=== PATIENT | female | born 1965 | race Caucasian/White ===

== ENCOUNTER 2019-12-30 20:03 | Emergency (ER) | payer OTHER ==
[2019-12-30] MEDS ORDERED: ONDANSETRON 4 MG TAB.RAPDIS PO ONE (21:07)
[2019-12-30] MEDS ORDERED: NORMAL SALINE 1000 ML 1,000 ML IV ONE (21:07)
[2019-12-30] MEDS ORDERED: DEXAMETHASONE SOD PHOS INJ 10 MG/1 ML VIAL IM ONE (21:08)
--- NOTE | 2019-12-30 21:09 | ER Document Report ---
ED Medical Screen (RME) - General Chief Complaint: Cough Stated Complaint: COUGH,FEVER,BODY ACHES Time Seen by Provider: 12/30/19 21:07 - HPI Notes: 12/30/19 21:08 Patient is a 54-year-old female no significant past medical history presents complaining of hoarseness of voice, cough, nausea/vomiting over the past 5 days. I have treated and performed a rapid initial assessment of this patient. A comprehensive ED assessment and evaluation of the patient, analysis of test results and completion of medical decision making process will be conducted by additional ED providers. PHYSICAL EXAMINATION: GENERAL: Well-appearing, well-nourished and in no acute distress. A&Ox4. Answers questions appropriately. Lungs: Grossly CTAB. No retractions. - Related Data Allergies/Adverse Reactions: codeine Allergy (Verified 12/30/19 21:06) Hives Physical Exam - Vital signs Vitals: Temp Pulse Resp BP Pulse Ox 98.0 F 89 16 134/68 H 98 12/30/19 20:15 12/30/19 20:15 12/30/19 20:15 12/30/19 20:15 12/30/19 20:15 Course - Vital Signs Vital signs: Temp Pulse Resp BP Pulse Ox 98.0 F 89 16 134/68 H 98 12/30/19 20:15 12/30/19 20:15 12/30/19 20:15 12/30/19 20:15 12/30/19 20:15
--- NOTE | 2019-12-30 21:40 | RADIOLOGY REPORT (SQ) ---
EXAM DESCRIPTION: XR CHEST 2 VIEWS COMPLETED DATE/TME: 12/30/2019 21:07 CLINICAL HISTORY: 54 years, Female, cough COMPARISON: None. NUMBER OF VIEWS: 2 TECHNIQUE: Frontal and lateral radiograph are obtained LIMITATIONS: None. FINDINGS: Cardiac and mediastinal contours are normal in appearance. Lungs are clear. No pleural effusion or pneumothorax. IMPRESSION: No acute disease. copyright 2010 [employer]- All Rights Reserved
[2019-12-30 21:57] LABS: APPEARANCE,URINE CLEAR; BILIRUBIN,URINE NEGATIVE (NEGATIVE); COLOR,URINE YELLOW; GLUCOSE, URINE NEGATIVE (NEGATIVE); KETONES,URINE NEGATIVE (NEGATIVE); PROTEIN,URINE NEGATIVE (NEGATIVE); URINE SPECIFIC GRAVITY 1.017; UROBILINOGEN,URINE NEGATIVE mg/dL (<2.0)
[2019-12-30] MEDS ORDERED: DEXAMETHASONE SOD PHOS INJ 10 MG/1 ML VIAL IV ONE (22:26)
[2019-12-30] MEDS ORDERED: LIDOCAINE 1% INJ-PF (10 MG/ML) 30 ML SDV NEB ONE (22:26)
[2019-12-30] MEDS ORDERED: ONDANSETRON HCL INJ/PF 4 MG/2 ML SDV IV ONE (22:26)
--- NOTE | 2019-12-30 22:28 | ER Document Report ---
ED General - General Chief Complaint: Cold Symptoms Stated Complaint: COUGH,FEVER,BODY ACHES Time Seen by Provider: 12/30/19 21:07 Notes: Patient is a 54-year-old female that comes emergency department for chief complaint of sick symptoms for the past 5 days. She states she has had congestion, cough, sore throat, hoarseness, her ears have started hurting badly and she has trouble hearing out of both ears, and she also has vomited on 2 separate occasions today randomly (she denies coughing until she vomited). She has a frequent nonproductive cough. She denies wheezing or difficulty breathing. She denies smoking, asthma, although she did have asthma as a child. She takes no daily medications, denies any diagnosed medical history. She has 2 sick family members with similar symptoms. Patient has been vaccinated for influenza. TRAVEL OUTSIDE OF THE [place] IN LAST 30 DAYS: No - Related Data Allergies/Adverse Reactions: codeine Allergy (Verified 12/30/19 21:06) Hives Home Medications: vitamins Past Medical History - General Information source: Patient - Social History Smoking Status: Never Smoker Chew tobacco use (# tins/day): No Frequency of alcohol use: None Drug Abuse: None Lives with: Family Family History: Reviewed & Not Pertinent Patient has suicidal ideation: No Patient has homicidal ideation: No - Immunizations Immunizations up to date: Yes Hx Diphtheria, Pertussis, Tetanus Vaccination: Yes Review of Systems - Review of Systems Constitutional: See HPI EENT: See HPI Cardiovascular: No symptoms reported Respiratory: See HPI Gastrointestinal: No symptoms reported Genitourinary: No symptoms reported Female Genitourinary: No symptoms reported Musculoskeletal: No symptoms reported Skin: No symptoms reported Hematologic/Lymphatic: No symptoms reported Neurological/Psychological: No symptoms reported Physical Exam - Vital signs Vitals: Temp Pulse Resp BP Pulse Ox 98.0 F 89 16 134/68 H 98 12/30/19 20:15 12/30/19 20:15 12/30/19 20:15 12/30/19 20:15 12/30/19 20:15 - Notes Notes: GENERAL: Disheveled, dark circles under her eyes, persistently coughing, unwell appearing HEAD: Normocephalic, atraumatic. EYES: Pupils equal, round, and reactive to light. Extraocular movements intact. ENT: Oral mucosa moist, tongue midline. Oropharynx unremarkable. Airway patent. Nasal congestion but nontender sinuses, no nasal septal hematoma. Bilateral otitis media, worse on the right with added effusion. Unremarkable mastoids. NECK: Full range of motion. Supple. Trachea midline. Minimal anterior cervical adenopathy. LUNGS: Clear to auscultation bilaterally, no wheezes, rales, or rhonchi. No respiratory distress. Persistent cough. HEART: Regular rate and rhythm. No murmur ABDOMEN: Soft, non-tender. Non-distended. EXTREMITIES: Moves all 4 extremities spontaneously. No edema, normal radial and dorsalis pedis pulses bilaterally. No cyanosis. BACK: no cervical, thoracic, lumbar midline tenderness. No saddle anesthesia, normal distal neurovascular exam. Moves all extremities in full range of motion. NEUROLOGICAL: Alert and oriented x3. Normal speech. Cranial nerves II through XII grossly intact. PSYCH: Normal affect, normal mood. SKIN: Flushed Course - Re-evaluation Re-evalutation: On my exam patient has a persistent cough that is essentially nonstop, this was slowed down with lidocaine nebulized but is still frequent. She is has sinus congestion, however her lungs are clear, she has no hypoxia or respiratory distress. Chest x-ray is clear. Laboratory work-up unremarkable. Patient appears a viral upper respiratory illness. In addition to this patient definitely has otitis media, worse on the right. Patient is requesting for something to help her sleep, she states she has not slept in days. She does appear exhausted. Patient was provided with syrup for this was precautions which were discussed, discussed remaining treatments including antibiotics, discussed follow-up and return precautions. Patient and family state appreciation and agreement. Stable at time of discharge. - Vital Signs Vital signs: Temp Pulse Resp BP Pulse Ox 98.0 F 70 18 114/65 100 12/31/19 01:02 12/31/19 01:02 12/31/19 01:02 12/31/19 01:02 12/31/19 01:02 - Laboratory Result Diagrams: 12/30/19 23:05 12/30/19 23:05 Laboratory results interpreted by me: 12/30/19 23:05 AST 40 H Discharge - Discharge Clinical Impression: Cough Upper respiratory infection Qualifiers: URI type: unspecified URI Qualified Code(s): J06.9 - Acute upper respiratory infection, unspecified Vomiting Qualifiers: Vomiting type: unspecified Vomiting Intractability: non-intractable Nausea presence: with nausea Qualified Code(s): R11.2 - Nausea with vomiting, u nspecified Otitis media Qualifiers: Otitis media type: suppurative Chronicity: acute Laterality: bilateral Recurrence: non-recurrent Spontaneous tympanic membrane rupture: without spontaneous rupture Qualified Code(s): H66.003 - Acute suppurative otitis media without spontaneous rupture of ear drum, bilateral Condition: Stable Disposition: HOME, SELF-CARE Additional Instructions: Your chest x-ray and laboratory work-up are reassuring. This appears to be a viral upper respiratory infection and you also have secondary ear infections. Take Zofran if needed for nausea, drink plenty of fluids and rest. Take amoxicillin as prescribed to completion. Sudafed and Flonase can help with nasal congestion and ear pain. Only use the cough syrup at night if needed, otherwise use [id number] medications. Follow-up with primary care for additional evaluation and management. Return if you worsen including difficulty breathing, spiking fever, uncontrolled vomiting, or any other concerning or worsening symptoms. Prescriptions: Hydrocodone Bit/Homatropine [Hycodan Syrup 5-1.5 mg/5 ml Ud Cup] 5 ml PO Q4HP PRN #120 ml PRN Reason: Amoxicillin Trihydrate [Amoxil 500 mg Capsule] 1,000 mg PO BID 7 Days #28 capsul e Fluticasone Propionate [Flonase Nasal Fayette 50 Mcg/Fayette 16 gm] 2 sprays NASL Q12 #1 inhaler Pseudoephedrine HCl [Sudafed 12 Hour] 120 mg PO Q12 PRN #14 tablet.er PRN Reason: Ondansetron [Zofran Odt 4 mg Tablet] 1 - 2 tab PO Q4H PRN #15 tab.rapdis PRN Reason: For Nausea/Vomiting
[2019-12-30 23:14] LABS: ABSOLUTE BASOPHILS # (AUTO) 0.1 10^3/uL (0.0-0.2); ABSOLUTE EOSINOPHILS # (AUTO) 0.3 10^3/uL (0.0-0.6); ABSOLUTE LYMPHOCYTES (AUTO) 3.1 10^3/uL (0.5-4.7); ABSOLUTE MONOCYTES (AUTO) 0.6 10^3/uL (0.1-1.4); ABSOLUTE NEUT (AUTO) 5.4 10^3/uL (1.7-8.2); BASOPHILS % (AUTO) 1.1 % (0-2); EOSINOPHILS % (AUTO) 3.6 % (0-6); HEMATOCRIT 43.5 % (36.0-47.0); HEMOGLOBIN 14.9 g/dL (12.0-15.5); LYMPHOCYTES % (AUTO) 32.7 % (13-45); MEAN CORPUSCULAR HEMOGLOBIN 30.9 pg (27.0-33.4); MEAN CORPUSCULAR HGB CONC 34.2 g/dL (32.0-36.0); MEAN CORPUSCULAR VOLUME 90 fl (80-97); MONOCYTES % (AUTO) 6.6 % (3-13); PLATELET COUNT 253 10^3/uL (150-450); RED BLOOD COUNT 4.81 10^6/uL (3.72-5.28); RED CELL DISTRIBUTION WIDTH 12.8 % (11.5-14.0); TOTAL CELLS COUNTED % (AUTO) 100 %; WHITE BLOOD COUNT 9.6 10^3/uL (4.0-10.5)
[2019-12-30 23:45] LABS: ALBUMIN 4.3 g/dL (3.5-5.0); ANION GAP 8 (5-19); BILIRUBIN,DIRECT 0.4 mg/dL (0.0-0.4); BILIRUBIN,TOTAL 0.4 mg/dL (0.2-1.3); BLOOD UREA NITROGEN 20 mg/dL (7-20); CALCIUM 9.5 mg/dL (8.4-10.2); CARBON DIOXIDE 29 mmol/L (22-30); CHLORIDE 103 mmol/L (98-107); GLUCOSE 96 mg/dL (75-110); TOTAL PROTEIN 7.7 g/dL (6.3-8.2)
[2019-12-30 23:53] LABS: POTASSIUM 4.4 mmol/L (3.6-5.0)
[2019-12-30 23:54] LABS: ALKALINE PHOSPHATASE 123 U/L (38-126); ASPARTATE AMINO TRANSFERASE 40 U/L (14-36)
[2019-12-31] MEDS ORDERED: AMOXICILLIN TRIHYDRATE 500 MG CAPSULE PO ONE (00:37)
[2019-12-31] MEDS ORDERED: HYDROCODONE/ACETAMINOPHEN 5-325 MG TABLET PO ONE (00:37)
[2019-12-31 01:06] VITALS: BP 114/65
== END 2019-12-31 01:06 | disposition home or self-care (01) ==
LOC: ER 20:03
DX: J06.9 Acute upper respiratory infection, unspecified (principal); H66.003 Acute suppurative otitis media without spontaneous rupture of ear drum, bilateral; R50.9 Fever, unspecified; R11.2 Nausea with vomiting, unspecified; M79.10 Myalgia, unspecified site; Z88.6 Allergy status to analgesic agent
CPT/HCPCS: 99283; 96375; 96365; 36415; 83690; 85025; 80053; 81001; 71046; J3490; J2405; J7030; J1100

== ENCOUNTER 2020-01-25 15:10 | Emergency (ER) | payer OTHER ==
--- NOTE | 2020-01-25 15:19 | ER Document Report ---
ED Medical Screen (RME) - General Chief Complaint: Chemical Exposure in Eye Stated Complaint: CHEMICAL EXPOSURE IN LEFT EYE Time Seen by Provider: 01/25/20 15:15 Mode of Arrival: Ambulatory Information source: Patient Notes: This 54-year-old female presents emergency department with her left eye super glued shut. She thought she was putting in eyedrops when she put superglue in her eye. She reports it did go in her eye and superglued her lids together. She has been at [facility] since this am. She was discharged.. They gave her erythromycin ointment told her to apply that and to return Monday for further evaluation by ophthalmology. Patient was discharged there and came here. Patient c/o left eye pain. I have greeted and performed a rapid initial assessment of this patient. A comprehensive ED assessment and evaluation of the patient, analysis of test results and completion of the medical decision making process will be conducted by additional ED providers. TRAVEL OUTSIDE OF THE [place] IN LAST 30 DAYS: No - Related Data Allergies/Adverse Reactions: codeine Allergy (Verified 01/25/20 15:19) Hives Past Medical History Pulmonary Medical History: Reports: Hx Asthma - Immunizations Immunizations up to date: Yes Hx Diphtheria, Pertussis, Tetanus Vaccination: Yes Physical Exam - Vital signs Vitals: Temp Pulse Resp BP Pulse Ox 97.6 F 68 18 137/84 H 100 01/25/20 15:14 01/25/20 15:14 01/25/20 15:14 01/25/20 15:14 01/25/20 15:14 Course - Vital Signs Vital signs: Temp Pulse Resp BP Pulse Ox 97.6 F 68 18 137/84 H 100 01/25/20 15:14 01/25/20 15:14 01/25/20 15:14 01/25/20 15:14 01/25/20 15:14
[2020-01-25] MEDS ORDERED: TETRACAINE HCL 0.5% OPH SOLN 4 ML OS ONE (18:37)
[2020-01-25 20:45] VITALS: BP 127/62
--- NOTE | 2020-01-27 09:07 | ER Document Report ---
Entered by RENATO EDWARDS SCRIBE 01/25/20 1551 Acting as scribe for:JODIE MO MD ED General - General Chief Complaint: Eye Problem Stated Complaint: CHEMICAL EXPOSURE IN LEFT EYE Time Seen by Provider: 01/25/20 15:15 Mode of Arrival: Ambulatory Information source: Patient Notes: This 54-year-old female presents to the emergency department with left eye pain that started this morning. Patient explains that when she was getting ready this morning she accidentally grabbed the nail glue instead of her eye drops and added a drop of the glue to her eye before she noticed. Patient said she went to the [facility] where they flushed her eye out with water, cut her eye lashes off and gave ointment to put on her eye. Patient arrived in the emergency d epartment with complaints that she still has glue in her eye and associated pain. TRAVEL OUTSIDE OF THE [place] IN LAST 30 DAYS: No - Related Data Allergies/Adverse Reactions: codeine Allergy (Verified 01/25/20 15:19) Hives Past Medical History - General Information source: Patient - Social History Smoking Status: Never Smoker Chew tobacco use (# tins/day): No Frequency of alcohol use: None Drug Abuse: None Family History: Reviewed & Not Pertinent Patient has suicidal ideation: No Patient has homicidal ideation: No Pulmonary Medical History: Reports: Hx Asthma - Immunizations Immunizations up to date: Yes Hx Diphtheria, Pertussis, Tetanus Vaccination: Yes Physical Exam - Vital signs Vitals: Temp Pulse Resp BP Pulse Ox 97.6 F 68 18 137/84 H 100 01/25/20 15:14 01/25/20 15:14 01/25/20 15:14 01/25/20 15:14 01/25/20 15:14 - Notes Notes: Physical Exam: General: Alert, appears well. HEENT: Normocephalic. Atraumatic. PERRL. Extraocular movements intact. Oropharynx clear. Red conjunctiva. Eyelids were glued shut when presented to the ED. After opening and removing nail glue that was present, the eye exam showed red conjunctiva with swelling and mild mucous. Red reflex. Retina looks healthy. On the staining of the eye, there is a corneal abrasion from 2 o'clock to 6 o'clock. Neck: Supple. Non-tender. Respiratory: No respiratory distress. Clear and equal breath sounds bilaterally. Cardiovascular: Regular rate and rhythm. Abdominal: Normal Inspection. Non-tender. No distension. Normal Bowel Sounds. Back: No gross abnormalities. Extremities: Moves all four extremities. Upper extremities: Normal inspection. Normal ROM. Lower extremities: Normal inspection. No edema. Normal ROM. Neurological: Normal cognition. AAOx4. Normal speech. Psychological: Normal affect. Normal Mood. Skin: Warm. Dry. Normal color. Course - Re-evaluation Re-evalutation: 01/25/20 20:16 Application of erythromycin ointment ophthalmic was applied to patient's eyelids with the crazy glue have been applied. After leaving the ointment on the area of her eyelids where there was matted glue over time the glue adhesion was released and no further glued adhesion blobs were found on her eyelids. Conjunctiva was erythematous and lower lid was swollen. Patient felt much better having the fluid removed from her eye then we examined her I see eye exam in the in the examination. - Vital Signs Vital signs: Temp Pulse Resp BP Pulse Ox 97.6 F 79 18 145/87 H 97 01/25/20 19:11 01/25/20 19:11 01/25/20 15:14 01/25/20 19:11 01/25/20 19:11 Procedures - Eye Procedure Left Time completed: 20:00 Eye Irrigated w/ Saline (ccs): 20 Foreign body removal: Left - MAtted from eyelids glue Alcaine Drops Administered: Yes Fluorescein applied: Left Antibiotic Oinment/Drps Admin: Right eye Slit lamp used: No Discharge - Discharge Clinical Impression: Corneal abrasion, left, Chemical conjunctivitis of left eye Condition: Good Disposition: HOME, SELF-CARE Instructions: Corneal Abrasion ([facility]), Conjunctivitis ([facility]), Antibiotic Therapy ([facility]) Additional Instructions: Corneal Abrasion You have a corneal abrasion, a scratch on the surface of the eye. The pain of a corneal abrasion feels like a sharp particle in the eye. Usually, antibiotics are placed in the eye to prevent infection. Occasiona lly, medication will be placed in the eye to dilate the pupil. This is done to relieve some of your discomfort and is only temporary. Pain medication may be required. Don't drive or operate machinery until you have the use of both your eyes. The abrasion usually is healed in one or two days. A follow-up examination to confirm healing is recommended. Call the doctor or return at once if you develop severe pain, decreasing vision, eye swelling, or purulent drainage. Continue use of erythromycin ophthalmic ointment 1 ribbon in left eye 3 times a day. Keep your appointment with your ophthalmology eye doctor on Monday. Return to emergency room if there is any problems before Monday. Prescriptions: Ibuprofen [Motrin 800 mg Tablet] 800 mg PO Q8H PRN #15 tab PRN Reason: pain I personally performed the services described in the documentation, reviewed and edited the documentation which was dictated to the scribe in my presence, and it accurately records my words and actions.
== END 2020-01-25 20:43 | disposition home or self-care (01) ==
LOC: ER 15:10
DX: T52.8X1A Toxic effect of other organic solvents, accidental (unintentional), initial encounter (principal); H10.212 Acute toxic conjunctivitis, left eye; S05.02XA Injury of conjunctiva and corneal abrasion without foreign body, left eye, initial encounter; X58.XXXA Exposure to other specified factors, initial encounter; Z88.6 Allergy status to analgesic agent; Z88.5 Allergy status to narcotic agent
CPT/HCPCS: 99283; J3490